=== PATIENT | male | born 1985 | race Caucasian/White ===

== ENCOUNTER 2016-12-28 11:05 | Emergency (ER) | payer OTHER ==
[~2016-12-28] VITALS: Ht 177.8 cm; Wt 68.0 kg
[2016-12-28 11:07] VITALS: BP 139/96; PULSE 72; RESP 20; TEMP 97.8; O2SAT 98
--- NOTE | 2016-12-28 11:40 | PD ---
Physical Exam Date Seen by Provider: Dec 28, 2016 Time Seen by Provider: 11:37 Narrative 31 year old male presents to the emergency department for evaluation of depression, anxiety, insomnia. He states he has a sense of hopelessness. Vital signs reviewed. Patient awaiting bed placement. Data Data Last Documented VS Vital Signs Date Time Temp Pulse Resp B/P Pulse Ox O2 Delivery O2 Flow Rate FiO2 12/28/16 11:07 97.8 72 20 139/96 98 Room Air [facility] Supervised Visit with DREW: Kat Montero Dec 28, 2016 11:40
[2016-12-28] MEDS ORDERED: ESCI10TA PO (13:30)
[2016-12-28] MEDS ORDERED: CITA20TA4 PO (13:30)
[2016-12-28] MEDS ORDERED: ZOLP10TA3 PO (13:30)
--- NOTE | 2016-12-28 13:45 | PD ---
HPI Chief Complaint: Psychiatric Symptoms Time Seen by Provider: 13:42 Travel History International Travel<30 days: No Contact w/Intl Traveler<30days: No Traveled to known affect area: No History of Present Illness HPI Patient requesting psychiatric evaluation patient is feeling more depressed and lost. He states he forgets to eat and has not been sleeping well. Patient states he saw a counselor and was told he is in crisis and he should not drive back to [place] by himself. Patient's father reportedly drove with him. Patient states he was given prescription of antidepressants as well as Ambien. Patient states have note seemed to help his symptoms. Denies any homicidal or suicidal ideations. Denies any medical concerns this time. Denies any chest pain, shortness of breath without pain, fevers nausea, or vomiting. PFSH Past Medical History Anxiety: Yes Depression: Yes Past Surgical History Other Surgery: Yes (surgery to left shoulder) Social History Alcohol Use: No Tobacco Use: No Substance Use: No Allergies-Medications (Allergen,Severity, Reaction): Coded Allergies: No Known Allergies (Unverified , 12/28/16) Reported Meds & Prescriptions Reported Meds & Active Scripts Active Reported Citalopram (Citalopram Hydrobromide) 20 Mg Tab 20 Mg PO DAILY Escitalopram (Escitalopram Oxalate) 10 Mg Tab 10 Mg PO DAILY Zolpidem (Zolpidem Tartrate) 10 Mg Tab 10 Mg PO HS PRN Review of Systems Except as stated in HPI: all other systems reviewed are Neg Physical Exam Narrative GENERAL: Well-developed, well nourished, in no acute distress, and non-ill appearing. SKIN: Focused skin assessment warm and dry. HEAD: Atraumatic. Normocephalic. EYES: Pupils equal and round. EOMI. No scleral icterus. No injection or drainage. ENT: No nasal bleeding or discharge. Mucous membranes pink and moist. NECK: Trachea midline. Supple. No nuclear rigidity. CARDIOVASCULAR: Regular rate and rhythm. No murmur appreciated. RESPIRATORY: No accessory muscle use. No respiratory distress. Clear to auscultation. Breath sounds equal bilaterally. MUSCULOSKELETAL: No obvious deformities. No clubbing. No cyanosis. No edema. Full range of motion. NEUROLOGICAL: Awake and alert. No obvious cranial nerve deficits. Motor grossly within normal limits. Normal speech. PSYCHIATRIC: Appropriate mood and affect; insight and judgment normal. Data Data Last Documented VS Vital Signs Date Time Temp Pulse Resp B/P Pulse Ox O2 Delivery O2 Flow Rate FiO2 12/28/16 11:07 97.8 72 20 139/96 98 Room Air Orders Complete Blood Count With Diff (12/28/16 13:41) Comprehensive Metabolic Panel (12/28/16 13:41) Psych Screen (12/28/16 13:41) Drug Screen, Random Urine (12/28/16 13:41) Alcohol (Ethanol) (12/28/16 13:41) Tylenol (Acetaminophen) (12/28/16 13:41) Labs Laboratory Tests Test 12/28/16 12/28/16 14:05 14:10 White Blood Count 6.6 TH/MM3 Red Blood Count 5.24 MIL/MM3 Hemoglobin 15.9 GM/DL Hematocrit 45.4 % Mean Corpuscular Volume 86.7 FL Mean Corpuscular Hemoglobin 30.3 PG Mean Corpuscular Hemoglobin 35.0 % Concent Red Cell Distribution Width 13.6 % Platelet Count 280 TH/MM3 Mean Platelet Volume 7.1 FL Neutrophils (%) (Auto) 77.9 % Lymphocytes (%) (Auto) 15.5 % Monocytes (%) (Auto) 6.0 % Eosinophils (%) (Auto) 0.1 % Basophils (%) (Auto) 0.5 % Neutrophils # (Auto) 5.2 TH/MM3 Lymphocytes # (Auto) 1.0 TH/MM3 Monocytes # (Auto) 0.4 TH/MM3 Eosinophils # (Auto) 0.0 TH/MM3 Basophils # (Auto) 0.0 TH/MM3 CBC Comment DIFF FINAL Differential Comment Sodium Level 139 MEQ/L Potassium Level 3.4 MEQ/L Chloride Level 104 MEQ/L Carbon Dioxide Level 27.5 MEQ/L Anion Gap 8 MEQ/L Blood Urea Nitrogen 13 MG/DL Creatinine 1.29 MG/DL Estimat Glomerular Filtration 65 ML/MIN Rate Random Glucose 119 MG/DL Calcium Level 9.2 MG/DL Total Bilirubin 0.6 MG/DL Aspartate Amino Transf 9 U/L (AST/SGOT) Alanine Aminotransferase 18 U/L (ALT/SGPT) Alkaline Phosphatase 71 U/L Total Protein 8.7 GM/DL Albumin 4.6 GM/DL Acetaminophen Level LESS THAN 2.0 MCG/ML Ethyl Alcohol Level LESS THAN 3 MG/DL Urine Opiates Screen NEG Urine Barbiturates Screen NEG Urine Amphetamines Screen NEG Urine Benzodiazepines Screen NEG Urine Cocaine Screen NEG Urine Cannabinoids Screen NEG MDM Medical Decision Making Medical Screen Exam Complete: Yes Emergency Medical Condition: Yes Differential Diagnosis Suicidal, homicidal, depression, adjustment disorder, electrolyte abnormality, other Narrative Course Patient was seen and examined. Labs were obtained and reviewed. Patient medically cleared for further treatment and evaluation by psych. Final disposition per psych. Diagnosis Primary Impression: Medical clearance for psychiatric admission Condition: Stable Singh Dumont Dec 28, 2016 13:45
[2016-12-28 14:34] LABS: AUTOMATED NEUTROPHIL # 5.2 TH/MM3 (1.8-7.7); BASOPHIL % 0.5 % (0.0-2.0); EOSINOPHIL % 0.1 % (0.0-4.0); HEMATOCRIT 45.4 % (39.0-51.0); HEMO FLAGS DIFF FINAL; LYMPH % 15.5 % (9.0-44.0); MEAN CELL VOLUME 86.7 FL (80.0-100.0); MEAN CORPUSCULAR HEMOGLOBIN 30.3 PG (27.0-34.0); NEUT % 77.9 % (16.0-70.0); PLATELET COUNT 280 TH/MM3 (150-450); RED BLOOD COUNT 5.24 MIL/MM3 (4.50-5.90); RED CELL DISTRIBUTION WIDTH 13.6 % (11.6-17.2); WHITE BLOOD COUNT 6.6 TH/MM3 (4.0-11.0)
[2016-12-28 14:36] LABS: AMPHETAMINE, URINE NEG (NEG); BARBITURATES, URINE NEG (NEG); COCAINE, URINE NEG (NEG)
[2016-12-28 14:45] LABS: ANION GAP 8 MEQ/L (5-15)
[2016-12-28 14:50] LABS: ACETAMINOPHEN LESS THAN 2.0 MCG/ML (10.0-30.0); ALKALINE PHOSPHATASE 71 U/L (45-117); ALT (GPT) 18 U/L (12-78); AST (GOT) 9 U/L (15-37); BICARBONATE 27.5 MEQ/L (21.0-32.0); BLOOD UREA NITROGEN 13 MG/DL (7-18); CHLORIDE 104 MEQ/L (98-107); GLOMERULAR FILTRATION RATE 65 ML/MIN (>89); POTASSIUM 3.4 MEQ/L (3.5-5.1); SODIUM (NA) 139 MEQ/L (136-145); TOTAL BILIRUBIN ADULT 0.6 MG/DL (0.2-1.0)
[2016-12-28 15:10] VITALS: BP 151/95; PULSE 65; RESP 18; TEMP 98.3; O2SAT 96
--- NOTE | 2016-12-28 17:11 | PD ---
History of Present Illness Chief Complaint: Psychiatric Symptoms Time Seen by Provider: 16:10 Travel History International Travel<30 Days: Yes Contact w/Intl Traveler<30days: Yes Name of Country Traveled to: [place] Known affected area: No Legal Status Legal Status: Voluntary History of Present Illness: History of Present Illness Patient is a 31 year old male with no previous psychiatric history who is requesting psychiatric evaluation. He reports that since October he has been feeling depressed, anxious, " not seeing a way out", having difficulty making decisions. He went to see a psychiatrist and was started on Celexa which he took for only a couple of dosages and stopped because he felt more anxious. It was later changed to Lexapro and he had the same effect. Patient was also prescribed Ambien because he reported having difficulty sleeping. In the past week he has had increase in symptoms including increased difficulty sleeping, low appetite, low energy, pervasive and ruminative thoughts regarding past decisions he has made regarding relationships. He endorsed feeling hopeless regarding his future as well as constant thoughts that he is a failure. The patient's father drove to [place] and brought him here for evaluation. In terms of substance use there is no hx of substance use and current toxicology is negative. Patient is seen in [facility]. Awake and alert male who is maintaining basic hygiene. he is engaging. Speech is clear and logical. No hallucinations, delusions or paranoia. Mood is anxious as well as depressed. Frequent and negativistic thoughts regarding his decisions, his future. No suicidal ideation. He is having trouble making decisions with great deal of ambivalence.He does not want to be treated at this facility as his father works here but is in need of inpatient treatment at this time. Discussed with father w patient's permission. He would like him to be referred to another hospital as he is an employee here.He agrees t to transport him to either [facility] or [facility]. [facility] Past Medical History Anxiety: Yes Depression: Yes Past Surgical History Other Surgery: Yes (surgery to left shoulder) Psychiatric History Psychiatric History Hx Psychiatric Treatment: No hx of inpatient tx History of Inpatient Treatment: No Guns or firearms in home: No Social History Single male. Completed college. Works as a teacher. Hx Alcohol Use: No Hx Tobacco Use: No Hx Substance Use: No Hx of Substance Use Treatment: No Family Psychiatric History nagative Allergies-Medications (Allergen,Severity, Reaction): Coded Allergies: No Known Allergies (Unverified , 12/28/16) Reported Meds & Prescriptions Reported Meds & Active Scripts Active Reported Citalopram (Citalopram Hydrobromide) 20 Mg Tab 20 Mg PO DAILY Escitalopram (Escitalopram Oxalate) 10 Mg Tab 10 Mg PO DAILY Zolpidem (Zolpidem Tartrate) 10 Mg Tab 10 Mg PO HS PRN Review of Systems Except as stated in HPI: all other systems reviewed are Neg Psychiatric: COMPLAINS OF: Anxiety, Depression Exam Alert: Yes [place]: Person (ox4) Mood: Anxious, Depressed Affect: Other (congruent) Speech: Clear, Logical Eye Contact: Indirect Hallucinations: Other (neagtive) Delusions: No Delusion Type: Other (negative) Suicidal: Ideation (deneis at present) Homicidal: Ideation (deneis ) Insight/Judgement Fair. Not impaired. MDM Medical Decision Making Medical Record Reviewed: Yes Assessment/Plan 31 year old male with no previous psychiatric history under a voluntary for increase in symptoms of depression and anxiety which are interfering with his ability to function. recent failed medication attempts. It is recommended that lj be admitted to inpatient psychiatric unit for stabilization of symptoms as well as medication. Patient and his father want to pursue admission to another facility. [facility] as well as [facility] is recommended. Will provide RX for Vistaril until patient is seen . lj 's father will assit with admission Orders Complete Blood Count With Diff (12/28/16 13:41) Comprehensive Metabolic Panel (12/28/16 13:41) Psych Screen (12/28/16 13:41) Drug Screen, Random Urine (12/28/16 13:41) Alcohol (Ethanol) (12/28/16 13:41) Tylenol (Acetaminophen) (12/28/16 13:41) Diet Regular Basic (12/28/16 Dinner) Results Vital Signs Date Time Temp Pulse Resp B/P Pulse Ox O2 Delivery O2 Flow Rate FiO2 12/28/16 15:10 98.3 65 18 151/95 96 Room Air 12/28/16 11:07 97.8 72 20 139/96 98 Room Air Laboratory Tests Test 12/28/16 12/28/16 14:05 14:10 White Blood Count 6.6 Red Blood Count 5.24 Hemoglobin 15.9 Hematocrit 45.4 Mean Corpuscular Volume 86.7 Mean Corpuscular Hemoglobin 30.3 Mean Corpuscular Hemoglobin 35.0 Concent Red Cell Distribution Width 13.6 Platelet Count 280 Mean Platelet Volume 7.1 Neutrophils (%) (Auto) 77.9 Lymphocytes (%) (Auto) 15.5 Monocytes (%) (Auto) 6.0 Eosinophils (%) (Auto) 0.1 Basophils (%) (Auto) 0.5 Neutrophils # (Auto) 5.2 Lymphocytes # (Auto) 1.0 Monocytes # (Auto) 0.4 Eosinophils # (Auto) 0.0 Basophils # (Auto) 0.0 CBC Comment DIFF FINAL Differential Comment Sodium Level 139 Potassium Level 3.4 Chloride Level 104 Carbon Dioxide Level 27.5 Anion Gap 8 Blood Urea Nitrogen 13 Creatinine 1.29 Estimat Glomerular Filtration 65 Rate Random Glucose 119 Calcium Level 9.2 Total Bilirubin 0.6 Aspartate Amino Transf 9 (AST/SGOT) Alanine Aminotransferase 18 (ALT/SGPT) Alkaline Phosphatase 71 Total Protein 8.7 Albumin 4.6 Acetaminophen Level LESS THAN 2.0 Ethyl Alcohol Level LESS THAN 3 Urine Opiates Screen NEG Urine Barbiturates Screen NEG Urine Amphetamines Screen NEG Urine Benzodiazepines Screen NEG Urine Cocaine Screen NEG Urine Cannabinoids Screen NEG Diagnosis Primary Impression: Medical clearance for psychiatric admission Additional Impression: Adjustment disorder Psychiatrically Cleared: Yes Med/ Other Pt Specific Info: Prescription(s) given Prescriptions Hydroxyzine Pamoate (Vistaril)50 Mg Cap50 Mg PO BID #20 CAP Prov:Kimberley Gotti 12/28/16 Disposition: 01 DISCHARGE HOME Condition: Stable Problem Qualifiers Additional Impression: Adjustment disorder Qualified Code: F43.23 - Adjustment disorder with mixed anxiety and depressed mood Kimberley Gotti Dec 28, 2016 17:10
[2016-12-28] MEDS ORDERED: VIST50CA PO (17:12)
== END 2016-12-28 18:00 | disposition home or self-care (01) ==
LOC: NEPJ 11:05
DX: F43.20 Adjustment disorder, unspecified (principal)
CPT/HCPCS: 80053; 80307; 85025; 99283